=== PATIENT | male | born 1995 | race African-American/Black ===

== ENCOUNTER 2021-09-08 21:28 | Emergency (ER) | payer OTHER, SELFPAY ==
--- NOTE | ~2021-09-08 | XR_ITS ---
EXAMINATION: XR abdomen/kub 1V DATE: 09/08/2021 22:29 INDICATION: Abdominal pain. TECHNIQUE: A supine view of the abdomen on 2 radiographs was obtained. COMPARISON: CT abdomen and pelvis 09/08/2021 FINDINGS: There are no dilated loops of bowel. There is no urolithiasis. IMPRESSION: 1. Normal bowel gas pattern. Reviewed, dictated and finalized at location A.
--- NOTE | ~2021-09-08 | CT_ITS ---
EXAMINATION: CT abdomen pelvis w con DATE: 09/09/2021 00:01 INDICATION: Abdominal pain. Hematuria. TECHNIQUE: Computed tomography (CT) of the abdomen and pelvis was performed with 100 mL Omnipaque 350 intravenous contrast. Automated exposure control and iterative reconstruction technique were employe d. The dose-length product was 320.07 mGy-cm. COMPARISON: None. FINDINGS: The visualized portions of the lung bases are clear without pneumonia or pleural effusion. The heart size is normal. No pericardial effusion. The liver, gallbladder, spleen, pancreas, adrenal glands, and kidneys are normal. There are no dilated loops of bowel. The appendix is normal. There ar e no pathologically enlarged lymph nodes. There is no free intraperitoneal fluid. There is mild lumba r spondylosis. IMPRESSION: 1. No etiology for the patient's symptoms. Reviewed, dictated and finalized at location A.
[2021-09-08 21:31] VITALS: BP 125/71; PULSE 71; RESP 16; TEMP 37.6; O2SAT 98
--- NOTE | 2021-09-08 22:22 | ED.ABDPAIN ---
HPI - Abdominal Pain General Chief Complaint: Abdominal Pain Stated Complaint: headache, abd pain , insect bite Time Seen by Provider: 09/08/21 21:52 History of Present Illness HPI narrative: 25-year-old male presents the emergency room with a sudden onset of the generalized abdominal pain, and a headache. Patient states symptoms started earlier today. Denies any nausea or vomiting or diarrhea. Patient does state that his last bowel movement was over 2 days ago. States that his girlfriend gave him some medicine for the pain but is unsure what it is and it did not help. Related Data Allergies Allergy/AdvReac Type Severity Reaction Status Date / Time No Known Allergies Allergy Verified 09/10/21 15:21 Review of Systems Review of Systems: CONSTITUTIONAL: Denies fever, chills, or sweats. EYES: Denies visual changes, redness, or discharge. ENT: Denies rhinorrhea, congestion, sore throat, or otalgia. CARDIOVASCULAR: Denies chest pain, palpitations, or edema. RESPIRATORY: Denies cough or dyspnea. GASTROINTESTINAL: Reports abdominal pain and constipation GENITOURINARY: Denies dysuria or hematuria. SKIN: Denies rash or itching. MUSCULOSKELETAL: Denies back pain, joint pain, or myalgia. NEUROLOGIC: Denies headache, numbness, dizziness, or weakness. PSYCHIATRIC: Denies anxiety or depression. [facility] Past Medical History Medical History (Updated 09/11/21 @ 09:40 by Shaina Noland NP) Constipation Surgical History Surgical History (Updated 09/11/21 @ 09:39 by Shaina Noland NP) No history of previous surgery Social History Social History (Updated 09/11/21 @ 09:28 by Shaina Noland NP) Smoking status: Never smoker Alcohol intake: current Alcohol use details: social Substance use type: does not use Living arrangements: with family Gender identity (if verbalized by the patient): Male Exam Narrative: GENERAL: Well-appearing, well-nourished, no physical limitations, and in no acute distress. HEAD: Normocephalic, atraumatic. EYES: Conjunctivae normal, PERRLA and EOMI. CHEST: Clear to auscultation. No respiratory distress. No wheezes rales or rhonchi. No tenderness. HEART: Regular rate and rhythm. No murmur heard. Normal peripheral pulses. ABDOMEN: Soft, nontender, nondistended, normal active bowel sounds. Negative heel strike. Negative psoas and obturator signs BACK: No CVA tenderness; No cervical/thoracic/lumbar tenderness, step-offs, bony abnormality; FROM EXTREMITIES: Normal range of motion. No edema. No clubbing or cyanosis SKIN: Warm, dry, no rash. No noted wounds NEURO: No focal deficits. Alert and oriented x3. MAEW. CN's II-XI intact bilaterally, normal gait PSYCH: Cooperative. Normal mood and affect. Course Vital Signs Vital signs: Vital Signs Temperature 37.6 C 09/08/21 21:31 Pulse Rate 71 09/08/21 21:31 Respiratory Rate 16 09/08/21 21:31 Blood Pressure 125/71 09/08/21 21:31 Pulse Oximetry 98 09/08/21 21:31 Temperature 37.6 C 09/08/21 21:31 Pulse Rate 84 09/09/21 00:44 Respiratory Rate 16 09/09/21 00:44 Blood Pressure 121/59 L 09/09/21 00:44 Pulse Oximetry 100 09/09/21 00:44 MDM - Abdominal Pain Lab Data Result diagrams: 09/08/21 22:30 09/08/21 22:30 Labs: Lab Results 09/08/21 09/08/21 09/08/21 Range/Units 22:30 22:30 22:30 WBC 13.6 H (4.5-10.0) K/mm3 RBC 5.49 (4.6-6.20) M/mm3 Hgb 16.4 (14.0-18.0) g/dL Hct 48.5 (42.0-52.0) % MCV 88.3 (80-100) fl MCH 29.9 (26-34) pg MCHC 33.8 (32-36) g/dl RDW 12.2 (11.5-14.5) % Plt Count 137 L (150-375) k/mm3 MPV 12.1 H (7.4-10.4) fl Immature Gran % (Auto) 0.4 (0-0.5) % Neut % (Auto) 96.4 H (45.5-73.1) % Lymph % (Auto) 1.0 L (18.3-44.2) % Hardy % (Auto) 1.8 L (2.6-8.5) % Eos % (Auto) 0.1 (0-4.4) % Baso % (Auto) 0.3 (0.2-1.2) % Lymph # (Auto) 0.14 L (0.9-3.2) K/mm3 Hardy # (Auto)
--- NOTE | 2021-09-08 22:26 | PC.NURSE ---
Patient taken to xray.
[2021-09-08] MEDS: SODIUM CHLORIDE 0.9% IV 1,000 ML 999 ML IV CONT (22:29)
[2021-09-08] MEDS: ONDANSETRON INJ 4 MG/2 ML VIAL IV PUSH (22:30)
[2021-09-08 22:40] LABS: Basophils Percent Auto 0.3 % (0.2-1.2); Eosinophils Percent Auto 0.1 % (0-4.4); Hematocrit 48.5 % (42.0-52.0); Hemoglobin 16.4 g/dL (14.0-18.0); Immature Granulocyte Absolute 0.05 K/mm3 (0.00-0.031); Immature Granulocyte Percent A 0.4 % (0-0.5); Immature Platelet Fraction Pct 12.5 % (0.9-11.2); Lymphocytes Absolute Auto 0.14 K/mm3 (0.9-3.2); Mean Corpuscular HGB Conc 33.8 g/dl (32-36); Mean Corpuscular Hemoglobin 29.9 pg (26-34); Mean Corpuscular Volume 88.3 fl (80-100); Mean Platelet Volume 12.1 fl (7.4-10.4); Monocytes Absolute Auto 0.2 K/mm3 (0.1-0.6); Monocytes Percent Auto 1.8 % (2.6-8.5); Neutrophils Absolute Auto 13.2 K/mm3 (1.3-6.7); Neutrophils Percent Auto 96.4 % (45.5-73.1); Platelet Count Result 137 k/mm3 (150-375); Red Blood Count 5.49 M/mm3 (4.6-6.20); Red Cell Distribution Width 12.2 % (11.5-14.5); White Blood Count 13.6 K/mm3 (4.5-10.0)
[2021-09-08 22:46] LABS: Appearance Urine Clear (Clear); Bilirubin Urine Negative (Negative); Blood Urine 2+ (Negative); Color Urine Yellow (Yellow); Glucose Urine UA Negative (Negative); Ketones Urine Trace mg/dL (Negative); Leukocyte Esterase Ur Trace LEU/UL (Negative); Nitrate Urine Negative (Negative); Protein Urine Negative (Negative)
[2021-09-08 22:50] LABS: Alanine Aminotransferase 20 U/L (6-50); Albumin Level 4.8 g/dL (3.5-5.1); Alkaline Phosphatase 82 U/L (38-126); Anion Gap 11 mmol/L (8-16); Aspartate Amino Transferase 30 U/L (17-59); Bilirubin,Total 1.8 mg/dL (0.2-1.3); Blood Urea Nitrogen 20 mg/dL (9-20); Calcium 9.8 mg/dL (8.4-10.2); Carbon Dioxide 28 mmol/L (22-30); Chloride 95 mmol/L (98-107); Estimated CRCL calculation 92 ml/min; Estimated Glomerular Filt Rate > 60; Glucose 142 mg/dL (65-110); Potassium 3.8 mmol/L (3.4-5.0); Sodium 134 mmol/L (137-145)
[2021-09-08 22:54] LABS: Add Urine Microscopic? YES; Bacteria Urine Trace /hpf; Mucus Urine Rare /lpf; RBC Urine 51-75 /hpf (0-2); Squamous Epithelial Cell Urine Rare /hpf (Few)
[2021-09-08 22:56] LABS: Lipase < 10 U/L (23-300)
[2021-09-08 23:13] LABS: SARS-CoV-2 RNA PCR Negative
--- NOTE | 2021-09-09 00:43 | PC.NURSE ---
pharmacy called there is a recall on mag citrate. MATTIE made aware.
[2021-09-09 00:44] VITALS: BP 121/59; PULSE 84; RESP 16; O2SAT 100
== END 2021-09-09 00:45 | disposition home or self-care (01) ==
PROVIDERS: Emergency Provider Nurse Practitioner Family
DX: K59.00 Constipation, unspecified (principal); Z20.822 Contact with and (suspected) exposure to COVID-19
CPT/HCPCS: 36415; 74018; 74177; 80053; 81001; 83690; 85025; 85055; 87086; 96361; 96374; 96375; 99284; C9803; J0131; J2405; J7030; Q9967; U0003; U0005

== ENCOUNTER 2021-09-10 14:58 | Emergency (ER) | payer SELFPAY ==
[2021-09-10 15:06] VITALS: BP 143/78; PULSE 70; RESP 16; TEMP 37.1; O2SAT 100
--- NOTE | 2021-09-10 15:53 | ED.SKABFB ---
HPI - Skin/Abscess/Foreign Bdy General Chief complaint: Skin/Abscess/Foreign Body Stated complaint: Insect Bite Time Seen by Provider: 09/10/21 15:54 Source: patient, RN notes reviewed and old records reviewed Mode of arrival: ambulatory Limitations: no limitations History of Present Illness HPI narrative: 25-year-old male who presents to [facility] with complaints of insect bite or sting to his right lateral thigh 3 days ago. Patient states that he has pain and swelling now around where he was bit. Patient has 6.5 cm diameter red swollen tissue to right outer thigh with center darker red with scabbed lesion, no drainage noted is warm to touch and painful, Patient reports that he has applied hydrocortisone ointment to area and used ice pack and he has been taking some Tylenol. Patient denies any fevers chills or sweats no body aches, shortness of breath or any difficulty swallowing. MD complaint: insect bite/sting Onset (ago): day(s) (3) Treatments prior to arrival: other ( ice,Tylenol) Related Data Allergies Allergy/AdvReac Type Severity Reaction Status Date / Time No Known Allergies Allergy Verified 09/10/21 15:21 Review of Systems Review of Systems: CONSTITUTIONAL: Denies fever, chills, or sweats. EYES: Denies visual changes, redness, or discharge. ENT: Denies rhinorrhea, congestion, sore throat, or otalgia. CARDIOVASCULAR: Denies chest pain, palpitations, or edema. RESPIRATORY: Denies cough or dyspnea. GASTROINTESTINAL: Denies abdominal pain, nausea, vomiting, or diarrhea. GENITOURINARY: Denies dysuria or hematuria. SKIN: Denies rash or itching.Positive for bite or sting to right lateral thigh with surrounding redness warmth and pain. MUSCULOSKELETAL: Denies back pain, joint pain, or myalgia. NEUROLOGIC: Denies headache, numbness, or weakness. PSYCHIATRIC: Denies anxiety or depression. All systems reviewed & are unremarkable except as noted in HPI and below PMFSH Past Medical History Medical History (Updated 09/11/21 @ 09:40 by Shaina Noland NP) Constipation Surgical History Surgical History (Updated 09/11/21 @ 09:39 by Shaina Noland NP) No history of previous surgery Social History Social History (Updated 09/11/21 @ 09:28 by Shaina Noland NP) Smoking status: Never smoker Alcohol intake: current Alcohol use details: social Substance use type: does not use Living arrangements: with family Gender identity (if verbalized by the patient): Male Comments At time of signature, agree with nursing past medical, surgical, social and family history. There is no relevant family history pertinent to the presenting complaint Exam Narrative: GENERAL: Well-appearing, well-nourished, and in no acute distress. HEAD: Normocephalic, atraumatic. EYES: PERRLA and EOMI. ENT: Nares clear, no rhinorrhea or epistaxis. Mucous membranes moist.TM's normal with good light reflex, throat pink with no lesions or exudates no tonsil swelling NECK: Supple.no lymphadenopathy CHEST: Clear to auscultation. No respiratory distress.SAO2 100 % on room air HEART: Regular rate and rhythm. No murmur heard. Normal peripheral pulses. ABDOMEN: Soft, nontender, nondistended, normal active bowel sounds. EXTREMITIES: Normal range of motion. No edema. SKIN: Warm, dry, 6.5 cm diameter area of redness to right outer thigh with center darker red area with scabbed lesion, no drainage noted is tender and warm to touch, no induration of tissue or abscess formation NEURO: No focal deficits. Alert and oriented x3. Course Course Level of Care: Express Care Visit Vital Signs Vital signs: Vital Signs Temperature 37.1 C 09/10/21 15:06 Pulse Rate 70 09/10/21 15:06 Respiratory Rate 16 09/10/21 15:06 Blood Pressure 143/78 H 09/10/21 15:06 Pulse Oximetry 100 09/10/21 15:06 Oxygen Delivery Room Air 09/10/21 15:06 Temperature 37.1 C 09/10/21 15:06 Pulse Rate 70 09/10/21 15:06 Respiratory Rate 16 09/10/21 15:06
== END 2021-09-10 16:14 | disposition home or self-care (01) ==
PROVIDERS: Emergency Provider Registered Nurse
DX: L25.9 Unspecified contact dermatitis, unspecified cause (principal); L03.115 Cellulitis of right lower limb; S70.361A Insect bite (nonvenomous), right thigh, initial encounter; W57.XXXA Bitten or stung by nonvenomous insect and other nonvenomous arthropods, initial encounter
CPT/HCPCS: 99213; G0463